=== PATIENT | male | born 1965 | race Caucasian/White ===

== ENCOUNTER 2016-10-10 19:28 | Emergency (ER) | payer OTHER ==
[2016-10-10] MEDS ORDERED: Sodium Chloride 0.9% 10 ML Syringe FLUSH PRN (19:39)
[2016-10-10] MEDS ORDERED: Sodium Chloride 0.9% 1,000 ML IV ONE ×2 (19:41→21:51)
[2016-10-10] MEDS ORDERED: dimenhyDRINATE 50 MG Tab PO ONE (19:41)
[2016-10-10] MEDS ORDERED: Ondansetron 4 MG/2 ML SDV IVPUSH ONE (19:41)
[2016-10-10] MEDS ORDERED: Meclizine 25 MG Tab PO ONE (19:41)
[2016-10-10 20:21] VITALS: BP 129/92
[2016-10-10 20:26] LABS: CHLORIDE,CL 104 mmol/L (98-107); SODIUM,NA 133 mmol/L (136-145)
[2016-10-10] MEDS ORDERED: Take Home: Ondansetron 4 MG Tab.DIS, 2 Tab Pack PO ONE (21:15)
[2016-10-10] MEDS ORDERED: dimenhyDRINATE 50 MG Tab ONE (21:29)
--- NOTE | 2016-10-22 02:10 | ER ---
Date of Service: 10/10/2016 SUBJECTIVE: The patient presents to the emergency room following an episode of vertigo, nausea and vomiting that lasted approximately 1 minute prior to coming to the emergency room. The patient was traveling from the [facility] to [place]. He states that he is also experiencing some mild stomach upset but no significant abdominal pain. The patient states that he was not experiencing any chest pain or shortness of breath. He denied any palpitations. He states the onset of his symptoms was fairly abrupt and states that he was extremely dizzy with the symptoms worsening when he turns his head. Again, he did vomit several times. PAST MEDICAL HISTORY: Previous episodes of vertigo in the past. MEDICATIONS: Dimenhydrinate. ALLERGIES: NKDA. REVIEW OF SYSTEMS: General: No fever or chills. HEENT: No sore throat, rhinorrhea, congestion. Respiratory: No shortness of breath. Cardiac: Denies any substernal chest pain. No jaw, arm, neck, or back pain. GI: No nausea, vomiting, or diarrhea. No melena, hematochezia, or hematemesis. : Denies any dysuria. Musculoskeletal: No myalgias or arthralgias. Neurologic: Denies any headache. No confusion. No difficulties with speech or ambulation. PHYSICAL EXAMINATION: General: This is a 51-year-old male patient in no acute distress. Vital Signs: Initially, blood pressure is 153/90, it was rechecked and was 129/92, heart rate 64, respiratory rate 16, O2 saturations 93% on room air, temperature is 35.5. Skin: Warm, pink, and dry. HEENT. Head is normocephalic, atraumatic. Eyes, PERRLA. Extraocular movements are intact. There is no funduscopic papilledema noted. He does have what appears to be mild right beating horizontal nystagmus. Ears, TMs are clear. Mouth, oral mucosa is moist. Lungs: Clear to auscultation. Heart: Regular rate and rhythm. Abdomen: Soft and nontender. There is no hepatosplenomegaly noted. There is no masses noted. Extremities: Without edema. Neurologic: The patient is alert and oriented, answers all questions appropriately. His speech is fluent. His gait is within normal limits. No pronator drift. His Romberg is negative. EKG was obtained showing a sinus rhythm without any acute ST or T-wave abnormalities. LABORATORY DATA: WBC 6.4, hemoglobin is 12.1, platelets are 256. Coags; PT is 10.9, INR is 1.0. Chemistry; sodium is 133, potassium is 3.1, chloride is 104, bicarb is 26, BUN is 28, creatinine is 1.3. Creatinine clearance is 79.04. GFR is 58, glucose is 131, calcium is 8.6, corrected calcium is 8.68, total bilirubin is 0.5, AST is 23, ALT is 36, alkaline phosphatase is 61, CK is 69, CK- MB is 0.5, troponin is less than 0.017. CRP is 0.2. Urinalysis reveals specific gravity 1.030. Did have 30 protein, negative for glucose, ketones, occult blood, nitrites, bilirubin and leukocyte esterase. CT scan of the patient's brain was obtained. It did not reveal any acute pathology. HOSPITAL COURSE: IV access is established. He was given a liter of normal saline IV and Zofran 4 mg IV. He was given diphenhydramine 50 mg p.o. as well as meclizine 25 mg p.o. He did report feeling much improved and was no longer experiencing any residual vertigo. He remained stable under my care in the emergency room. ASSESSMENT: Acute vertigo. PLAN: The patient will be discharged. He was advised to obtain diphenhydramine and meclizine to be taken as needed for continued symptoms. This does appear to be an inner ear issue more than likely. If he is continuing to have issues, he should follow up with his primary care provider and get a referral for physical therapy to discuss the vestibular therapy. All questions were answered. OVIDIOK: 10/22/2016 01:26:22 MODL: 10/22/2016 02:02:05 /[id number]
== END 2016-10-10 21:42 | disposition home or self-care (01) ==
LOC: VM.ED 19:28
DX: R42 Dizziness and giddiness (principal)
CPT/HCPCS: 70450; 80053; 81001; 82550; 82553; 84484; 85025; 85610; 86140; 93005; 96361; 96374; 99284; A9270; J2405; J7030